=== PATIENT | male | born 1985 | race African-American/Black ===

== ENCOUNTER 2017-05-06 09:45 | Emergency (ER) | payer MEDICAID ==
[~2017-05-06] VITALS: Ht 182.9 cm; Wt 95.0 kg
[2017-05-06 10:05] VITALS: BP 135/87
== END 2017-05-06 11:15 | disposition home or self-care (01) ==
LOC: ER 09:45
DX: M25.521 Pain in right elbow (principal); F17.210 Nicotine dependence, cigarettes, uncomplicated; Z88.0 Allergy status to penicillin; Z88.6 Allergy status to analgesic agent
CPT/HCPCS: 99282; A4565

== ENCOUNTER 2018-01-25 16:21 | Emergency (ER) | payer MEDICAID ==
[~2018-01-25] VITALS: Ht 170.2 cm; Wt 96.0 kg
[2018-01-25] MEDS ORDERED: TETANUS, DIPHTHERIA, PERTUSSIS VAC/PF 0.5ML (>7YR OLD) IM ONE (17:45)
[2018-01-25] MEDS ORDERED: LIDOCAINE HCL 1% 20ML VIAL (Pyxis) INJ MC ONE (17:45)
[2018-01-25] MEDS ORDERED: LIDOCAINE HCL/PF 1% 10 MG/ML 5ML VIAL IJ SCH (19:45)
[2018-01-25] MEDS ORDERED: HYDROCODONE/ACETAMINOPHEN 5/325MG TABLET PO ONE (20:15)
[2018-01-25] MEDS ORDERED: LIDOCAINE/EPINEPHR/TETRACAINE 3ML TP ONE (20:15)
[2018-01-25 20:50] VITALS: BP 120/82
== END 2018-01-25 20:52 | disposition home or self-care (01) ==
LOC: ER 16:21
DX: S91.114A Laceration without foreign body of right lesser toe(s) without damage to nail, initial encounter (principal); W25.XXXA Contact with sharp glass, initial encounter; Y93.89 Activity, other specified; Y92.091 Bathroom in other non-institutional residence as the place of occurrence of the external cause; Z23 Encounter for immunization; Z88.0 Allergy status to penicillin; Z88.6 Allergy status to analgesic agent; Z88.5 Allergy status to narcotic agent
CPT/HCPCS: 73630; 90471; 90715; 99284; J3490; Z7610

== ENCOUNTER 2018-04-14 02:16 | Emergency (ER) | payer MEDICAID ==
[~2018-04-14] VITALS: Ht 182.9 cm; Wt 86.0 kg
[2018-04-14] MEDS ORDERED: OXYCODONE HCL/ACETAMINOPHEN 5/325MG TABLET PO ONE (03:45)
[2018-04-14 04:16] LABS: BASOPHILS % 0.7 % (0.0-2.0); EOSINOPHILS % 0.1 % (0.0-5.0); HEMATOCRIT. 42.4 % (42.0-52.0); HEMOGLOBIN. 14.1 g/dL (14.0-18.0); MEAN CORPUSCULAR HEMOGLOBIN 28.9 pg (28.0-32.0); MEAN CORPUSCULAR VOLUME 87.2 fL (80.0-94.0); MEAN PLATELET VOLUME 8.2 fl (7.4-10.4); MONOCYTES % 4.1 % (2.0-8.0); NEUTROPHILS % 77.1 % (40.0-76.0); PLATELET 206 x1000/uL (130-400); RED BLOOD CELL COUNT 4.86 mill/uL (4.7-6.1); RED CELL DISTRIBUTION WIDTH 14.1 % (11.6-14.6)
[2018-04-14 04:29] LABS: CHLORIDE 108 mEq/L (98-107)
[2018-04-14 05:30] VITALS: BP 109/99
== END 2018-04-14 06:12 | disposition home or self-care (01) ==
LOC: ER 02:16
DX: R07.81 Pleurodynia (principal); J06.9 Acute upper respiratory infection, unspecified; Z88.5 Allergy status to narcotic agent; Z88.6 Allergy status to analgesic agent; Z88.0 Allergy status to penicillin; Y09 Assault by unspecified means
CPT/HCPCS: 36415; 71045; 99285

== ENCOUNTER 2019-02-11 19:00 | Emergency (ER) | payer MEDICAID ==
[~2019-02-11] VITALS: Ht 182.9 cm; Wt 100.0 kg
[2019-02-11] MEDS ORDERED: MORPHINE SULFATE 4 MG/ML CPJ (NOT FOR IM USE) IV STA (19:58)
[2019-02-11] MEDS ORDERED: SODIUM CHLORIDE 0.9% 1,000 ML IV ONE (19:58)
[2019-02-11] MEDS ORDERED: ONDANSETRON HCL 4MG/2ML INJ IV STA (19:58)
[2019-02-11 21:12] LABS: CHLORIDE 107 mEq/L (98-107)
[2019-02-11 21:18] LABS: INR 1.1; PARTIAL THROMBOPLASTIN TIME 27.4 sec (23.4-31.0)
[2019-02-11 21:58] LABS: BASOPHILS % 0.6 % (0.0-2.0); EOSINOPHILS % 0.2 % (0.0-5.0); HEMATOCRIT. 47.5 % (42.0-52.0); HEMOGLOBIN. 16.2 g/dL (14.0-18.0); LYMPHOCYTES % 20.7 % (20.0-50.0); MEAN CORPUSCULAR HEMOGLOBIN 29.6 pg (28.0-32.0); MEAN CORPUSCULAR VOLUME 86.7 fL (80.0-94.0); MEAN PLATELET VOLUME 8.4 fl (7.4-10.4); MONOCYTES % 3.9 % (2.0-8.0); NEUTROPHILS % 74.6 % (40.0-76.0); PLATELET 236 x1000/uL (130-400); RED BLOOD CELL COUNT 5.48 mill/uL (4.7-6.1); RED CELL DISTRIBUTION WIDTH 14.1 % (11.6-14.6)
[2019-02-11] MEDS ORDERED: IOHEXOL-300 100 ML BOTTLE ONE (23:24)
[2019-02-12 00:09] LABS: CLARITY URINE CLEAR (CLEAR); COLOR URINE YELLOW (YELLOW); KETONES URINE TRACE (NEGATIVE); LEUKOCYTE ESTERASE URINE NEGATIVE (NEGATIVE); NITRITE URINE NEGATIVE (NEGATIVE); OCCULT BLOOD URINE NEGATIVE (NEGATIVE); PH URINE 7.5 (4.5-8.0); PROTEIN URINE NEGATIVE (NEGATIVE); SPECIFIC GRAVITY URINE 1.049 (1.005-1.030)
[2019-02-12 00:55] VITALS: BP 138/84
== END 2019-02-12 01:27 | disposition home or self-care (01) ==
LOC: ER 19:52 → CANBEDREQ 02-12 06:07
DX: R20.0 Anesthesia of skin (principal); F12.10 Cannabis abuse, uncomplicated; Z88.0 Allergy status to penicillin; Z88.6 Allergy status to analgesic agent; Z88.5 Allergy status to narcotic agent; V03.90XA Pedestrian on foot injured in collision with car, pick-up truck or van, unspecified whether traffic or nontraffic accident, initial encounter; Y93.89 Activity, other specified; Y92.488 Other paved roadways as the place of occurrence of the external cause
CPT/HCPCS: 36415; 70450; 71260; 72125; 73562; 73590; 73610; 73630; 73650; 74177; 80053; 81003; 83690; 85025; 85610; 85730; 93005; 96361; 96374; 96375; 99284; J2270; J2405; J7030; L1830; Q9967; Z7610

== ENCOUNTER 2019-09-18 21:19 | Inpatient (IN) | payer MEDICAID ==
[~2019-09-18] VITALS: Ht 182.9 cm; Wt 90.7 kg
[2019-09-18 23:20] LABS: BASOPHILS % 0.4 % (0.0-2.0); EOSINOPHILS % 1.2 % (0.0-5.0); HEMATOCRIT. 51.4 % (42.0-52.0); LYMPHOCYTES % 37.5 % (20.0-50.0); MEAN CORPUSCULAR HEMOGLOBIN 28.6 pg (28.0-32.0); MEAN CORPUSCULAR VOLUME 86.6 fL (80.0-94.0); MONOCYTES % 7.5 % (2.0-8.0); NEUTROPHILS % 53.4 % (40.0-76.0); PLATELET 241 x1000/uL (130-400); RED BLOOD CELL COUNT 5.93 mill/uL (4.7-6.1); RED CELL DISTRIBUTION WIDTH 14.3 % (11.6-14.6)
[2019-09-18 23:24] LABS: CHLORIDE 102 mEq/L (98-107)
[2019-09-19] VITALS (8 sets, daily range): BP systolic 107–126; BP diastolic 52–78
[2019-09-19] MEDS ORDERED: MORPHINE SULFATE 4 MG/ML CPJ (NOT FOR IM USE) IV ONE (00:30)
[2019-09-19] MEDS ORDERED: LORAZEPAM 2MG/ML CPJ IV ONE (00:30)
[2019-09-19] MEDS ORDERED: ONDANSETRON HCL 4MG/2ML INJ IV ONE (00:30)
[2019-09-19] MEDS ORDERED: LIDOCAINE HCL 1% 20ML VIAL (Pyxis) INJ INFIL ONE (00:30)
[2019-09-19] MEDS ORDERED: LORAZEPAM 2MG/ML CPJ ONE (00:46)
[2019-09-19] MEDS ORDERED: ACETAMINOPHEN 325MG TABLET PO PRN ×2 (10:00)
[2019-09-19] MEDS ORDERED: ACETAMINOPHEN 650MG/20.3ML UDC GT PRN ×2 (10:00)
[2019-09-19] MEDS ORDERED: ACETAMINOPHEN 650MG SUPP PR PRN ×2 (10:00)
[2019-09-19] MEDS ORDERED: DIPHENHYDRAMINE 50MG/ML VIAL IV PRN (10:00)
[2019-09-19] MEDS ORDERED: GUAIFENESIN 200MG/10ML SUGAR FREE UDC PO PRN (10:00)
[2019-09-19] MEDS ORDERED: CLONIDINE 0.1MG TABLET PO PRN (10:00)
[2019-09-19] MEDS ORDERED: MAGNESIUM/ALUMINUM HYDROXIDE/SIMETHICONE 30ML UDC PO PRN (10:00)
[2019-09-19] MEDS ORDERED: NA PHOS,M-B/NA PHOS,DI-BA ENEMA 118ML PR PRN (10:00)
[2019-09-19] MEDS ORDERED: DOCUSATE SODIUM 100MG CAPSULE PO PRN (10:00)
[2019-09-19 12:00] LABS: BASOPHILS % 0.4 % (0.0-2.0); EOSINOPHILS % 0.7 % (0.0-5.0); HEMOGLOBIN. 15.2 g/dL (14.0-18.0); LYMPHOCYTES % 17.7 % (20.0-50.0); MEAN CORPUSCULAR HEMOGLOBIN 28.8 pg (28.0-32.0); MEAN CORPUSCULAR VOLUME 87.5 fL (80.0-94.0); MEAN PLATELET VOLUME 7.8 fl (7.4-10.4); NEUTROPHILS % 74.2 % (40.0-76.0); PLATELET 201 x1000/uL (130-400); RED BLOOD CELL COUNT 5.26 mill/uL (4.7-6.1)
[2019-09-19 12:06] LABS: CHLORIDE 103 mEq/L (98-107)
[2019-09-19] MEDS: MORPHINE SULFATE 2 MG/ML CPJ (NOT FOR IM USE) IV PRN ×2 (13:15→17:39)
[2019-09-19] MEDS ORDERED: SODIUM CHLORIDE 0.9% INJ 3ML FLUSH IVF SCH (14:00)
[2019-09-19] MEDS: CEFTRIAXONE 1 G PREMIX 50 ML IV SCH (15:53)
[2019-09-19] MEDS: AZITHROMYCIN 500 MG in DEXT 5% WATER 250 ML IV SCH (15:59)
[2019-09-19] MEDS ORDERED: BISACODYL 10MG SUPP PR PRN (21:00)
[2019-09-19] MEDS ORDERED: DIPHENHYDRAMINE 25MG CAPSULE PO PRN (21:00)
[2019-09-19] MEDS ORDERED: DOCUSATE SODIUM 100MG CAPSULE PO SCH (21:00)
[2019-09-19] MEDS: SODIUM CHLORIDE 0.9% INJ 3ML FLUSH IVF SCH (21:27)
[2019-09-19 23:19] LABS: INR 1.1; PROTHROMBIN TIME 11.7 sec (9.6-11.0)
[2019-09-20] VITALS (45 sets, daily range): BP systolic 92–192; BP diastolic 41–239
[2019-09-20] MEDS: MORPHINE SULFATE 2 MG/ML CPJ (NOT FOR IM USE) IV PRN ×4 (00:12→14:32)
[2019-09-20 00:23] LABS: CLARITY URINE CLEAR (CLEAR); COLOR URINE YELLOW (YELLOW); KETONES URINE NEGATIVE (NEGATIVE); LEUKOCYTE ESTERASE URINE NEGATIVE (NEGATIVE); NITRITE URINE NEGATIVE (NEGATIVE); OCCULT BLOOD URINE NEGATIVE (NEGATIVE); PROTEIN URINE NEGATIVE (NEGATIVE); SPECIFIC GRAVITY URINE 1.022 (1.005-1.030); UROBILINOGEN URINE 0.2 E.U./dL (0.2-1.0)
[2019-09-20 00:49] LABS: *AMPHETAMINES SCREEN URINE NEGATIVE (NEGATIVE); *BARBITURATES SCREEN URINE NEGATIVE (NEGATIVE)
[2019-09-20 00:50] LABS: *BENZODIAZEPINES SCREEN URINE NEGATIVE (NEGATIVE); *COCAINE SCREEN URINE PRESUMTIVE POSITIVE (NEGATIVE); CANNABINOID URINE SCREEN PRESUMTIVE POSITIVE (NEGATIVE); METHADONE URINE SCREEN NEGATIVE (NEGATIVE); OPIATES URINE SCREEN PRESUMTIVE POSITIVE (NEGATIVE); PHENCYCLIDINE URINE SCREEN NEGATIVE (NEGATIVE)
[2019-09-20 05:04] LABS: BASOPHILS % 0.4 % (0.0-2.0); EOSINOPHILS % 3.1 % (0.0-5.0); HEMATOCRIT. 45.6 % (42.0-52.0); HEMOGLOBIN. 15.1 g/dL (14.0-18.0); LYMPHOCYTES % 33.1 % (20.0-50.0); MEAN CORPUSCULAR HEMOGLOBIN 28.8 pg (28.0-32.0); MEAN PLATELET VOLUME 7.7 fl (7.4-10.4); NEUTROPHILS % 55.4 % (40.0-76.0); PLATELET 188 x1000/uL (130-400); RED BLOOD CELL COUNT 5.24 mill/uL (4.7-6.1); RED CELL DISTRIBUTION WIDTH 14.1 % (11.6-14.6)
[2019-09-20 05:12] LABS: CHLORIDE 104 mEq/L (98-107)
[2019-09-20 05:13] LABS: INR 1.1; PROTHROMBIN TIME 11.6 sec (9.6-11.0)
[2019-09-20 05:22] LABS: HDL CHOLESTEROL 72 mg/dL (40-59); LDL CHOLESTEROL 78 mg/dL (5-100)
[2019-09-20] MEDS: SODIUM CHLORIDE 0.9% INJ 3ML FLUSH IVF SCH ×3 (06:00→22:00)
[2019-09-20] MEDS ORDERED: TALC 3 GM VIAL IX ONE (07:00)
[2019-09-20] MEDS ORDERED: LIDOCAINE HCL/EPINEPHRINE 1%-EPI 1:100,000 20 ML VIAL ONE (07:08)
[2019-09-20] MEDS ORDERED: TETRACAINE/BENZOCAINE/BUTAMBEN 20 GM SPRAY MM ONE (07:08)
[2019-09-20] MEDS ORDERED: BACITRACIN 50,000 UNITS/VIAL ONE (07:08)
[2019-09-20] MEDS ORDERED: FENTANYL CITRATE/PF 50MCG/ML 2ML VIAL ONE ×2 (07:28→08:46)
[2019-09-20] MEDS ORDERED: ROCURONIUM BROMIDE 10MG/ML VIAL 5ML IV ONE ×2 (07:28→08:36)
[2019-09-20] MEDS ORDERED: NEOSTIGMINE METHYLSULFATE 1MG/ML 10 ML VIAL ONE (07:28)
[2019-09-20] MEDS ORDERED: METOCLOPRAMIDE HCL 10MG/2ML VIAL ONE (07:29)
[2019-09-20] MEDS ORDERED: ONDANSETRON HCL 4MG/2ML INJ ONE (07:29)
[2019-09-20] MEDS ORDERED: LIDOCAINE HCL/PF 1% 10 MG/ML 5ML VIAL ONE (07:29)
[2019-09-20] MEDS ORDERED: SUCCINYLCHOLINE CHLORIDE 200MG/10ML IV ONE (07:29)
[2019-09-20] MEDS ORDERED: CEFAZOLIN SODIUM 1000MG/VIAL ONE (07:29)
[2019-09-20] MEDS ORDERED: SODIUM CHLORIDE 0.9% 10ML VIAL ONE ×2 (07:29→08:26)
[2019-09-20] MEDS ORDERED: GLYCOPYRROLATE 0.2 MG/ML 2ML VIAL ONE (07:29)
[2019-09-20] MEDS ORDERED: MIDAZOLAM HCL 2 MG/2 ML VIAL ONE (07:29)
[2019-09-20] MEDS ORDERED: PROPOFOL 200MG/20ML VIAL IV ONE (07:29)
[2019-09-20] MEDS ORDERED: SKIN ADHESIVE 0.7 GM EA TOP ONE (09:30)
[2019-09-20] MEDS ORDERED: SODIUM CHLORIDE 0.9% 500 ML IV PRN (10:17)
[2019-09-20] MEDS ORDERED: ONDANSETRON HCL 4MG/2ML INJ IV PRN (10:30)
[2019-09-20] MEDS ORDERED: ACETAMINOPHEN 325MG TABLET PO PRN (10:30)
[2019-09-20 10:57] LABS: BG BASE EXCESS -2.6 mmol/L (-2.0-2.0); BG CARBOXYHEMOGLOBIN 0.8 % (0.5-1.5); BG DEOXYHEMOGLOBIN 2.7 % (0.0-5.0); BG FRACTION INSPIRED OXYGEN 60; BG HCO3 ACT 24.2 mmol/L (22.0-26.0); BG METHEMOGLOBIN 0.2 % (0.0-1.5); BG OXYGEN SATURATION 97.3 % (92.0-98.5); BG OXYHEMOGLOBIN 96.3 % (94.0-97.0); BG PCO2 49.3 mmHg (35.0-45.0); BG PH 7.308 (7.350-7.450); BG PO2 97.3 mmHg (75.0-100.0); BG SAMPLE SITE A-LINE; BG TOTAL HEMOGLOBIN 14.9 g/dL (12.0-18.0); BG VENT MODE MASK - SIMPLE
[2019-09-20] MEDS: DOCUSATE SODIUM 100MG CAPSULE PO SCH ×2 (11:20→15:28)
[2019-09-20] MEDS: MAGNESIUM HYDROXIDE 400MG/5ML 30ML UDC PO SCH ×4 (11:30→23:46)
[2019-09-20] MEDS: DEXT 5%/0.45% NACL 1000ML 1,000 ML IV SCH (11:39)
[2019-09-20] MEDS: OXYCODONE HCL/ACETAMINOPHEN 5/325MG TABLET PO PRN ×2 (13:56→21:31)
[2019-09-20] MEDS: IPRATROPIUM/ALBUTEROL 0.5-3(2.5)MG/3ML NEB HHN SCH ×2 (14:59→21:09)
[2019-09-20] MEDS: CEFTRIAXONE 1 G PREMIX 50 ML IV SCH (15:32)
[2019-09-20] MEDS: AZITHROMYCIN 500 MG in DEXT 5% WATER 250 ML IV SCH (15:32)
[2019-09-21] VITALS (47 sets, daily range): BP systolic 85–186; BP diastolic 18–137
[2019-09-21] MEDS: IPRATROPIUM/ALBUTEROL 0.5-3(2.5)MG/3ML NEB HHN SCH ×7 (01:08→20:32)
[2019-09-21] MEDS: OXYCODONE HCL/ACETAMINOPHEN 5/325MG TABLET PO PRN ×2 (01:50→09:14)
[2019-09-21] MEDS: MAGNESIUM HYDROXIDE 400MG/5ML 30ML UDC PO SCH ×3 (04:15→12:09)
[2019-09-21] MEDS: DEXT 5%/0.45% NACL 1000ML 1,000 ML IV SCH ×2 (04:16→21:08)
[2019-09-21] MEDS: SODIUM CHLORIDE 0.9% INJ 3ML FLUSH IVF SCH ×3 (05:13→21:09)
[2019-09-21] MEDS: MORPHINE SULFATE 2 MG/ML CPJ (NOT FOR IM USE) IV PRN ×9 (06:28→23:24)
[2019-09-21] MEDS: DOCUSATE SODIUM 100MG CAPSULE PO SCH ×2 (08:22→17:00)
[2019-09-21 12:19] LABS: BASOPHILS % 0.3 % (0.0-2.0); EOSINOPHILS % 0.1 % (0.0-5.0); HEMATOCRIT. 43.2 % (42.0-52.0); HEMOGLOBIN. 14.3 g/dL (14.0-18.0); LYMPHOCYTES % 11.5 % (20.0-50.0); MEAN CORPUSCULAR HEMOGLOBIN 28.9 pg (28.0-32.0); MEAN CORPUSCULAR VOLUME 87.3 fL (80.0-94.0); MEAN PLATELET VOLUME 7.5 fl (7.4-10.4); MONOCYTES % 11.1 % (2.0-8.0); PLATELET 190 x1000/uL (130-400); RED BLOOD CELL COUNT 4.95 mill/uL (4.7-6.1); RED CELL DISTRIBUTION WIDTH 14.2 % (11.6-14.6)
[2019-09-21 12:27] LABS: CHLORIDE 101 mEq/L (98-107)
[2019-09-21] MEDS: CEFTRIAXONE 1 G PREMIX 50 ML IV SCH (14:04)
[2019-09-21] MEDS: AZITHROMYCIN 500 MG in DEXT 5% WATER 250 ML IV SCH (15:05)
[2019-09-22] VITALS (14 sets, daily range): BP systolic 117–155; BP diastolic 73–120
[2019-09-22] MEDS: IPRATROPIUM/ALBUTEROL 0.5-3(2.5)MG/3ML NEB HHN SCH ×4 (00:02→13:54)
[2019-09-22] MEDS: MORPHINE SULFATE 2 MG/ML CPJ (NOT FOR IM USE) IV PRN ×2 (03:34→06:41)
[2019-09-22] MEDS: SODIUM CHLORIDE 0.9% INJ 3ML FLUSH IVF SCH ×2 (06:40→13:09)
[2019-09-22] MEDS: DOCUSATE SODIUM 100MG CAPSULE PO SCH (08:13)
[2019-09-22] MEDS: OXYCODONE HCL/ACETAMINOPHEN 5/325MG TABLET PO PRN (10:56)
[2019-09-22] MEDS: DEXT 5%/0.45% NACL 1000ML 1,000 ML IV SCH (13:09)
[2019-09-23] MEDS ORDERED: AZITHROMYCIN 500 MG TABLET PO SCH (09:00)
== END 2019-09-22 15:23 | disposition left against medical advice (07) | DRG 121 ==
LOC: ER 21:19 → 5EST 09-19 01:26 → EDBEDREQSVC 09-19 01:27 → EDBEDREQ 09-19 01:27 → EDBEDREQTM 09-19 01:27 → ENRESERV 09-19 07:26 → CVICU 09-20 09:39
PROVIDERS: ADMIT Family Medicine; ATTEND Family Medicine
PROC: 0W9B30Z Drainage of Left Pleural Cavity with Drainage Device, Percutaneous Approach (ICD-10-PCS; 2019-09-19)
PROC: 0W9B40Z Drainage of Left Pleural Cavity with Drainage Device, Percutaneous Endoscopic Approach (ICD-10-PCS; principal; 2019-09-20)
PROC: 0BBG4ZZ Excision of Left Upper Lung Lobe, Percutaneous Endoscopic Approach (ICD-10-PCS; 2019-09-20)
PROC: 3E0L4GC Introduction of Other Therapeutic Substance into Pleural Cavity, Percutaneous Endoscopic Approach (ICD-10-PCS; 2019-09-20)
DX: J96.00 Acute respiratory failure, unspecified whether with hypoxia or hypercapnia (principal); J18.9 Pneumonia, unspecified organism; J93.11 Primary spontaneous pneumothorax; J43.0 Unilateral pulmonary emphysema [MacLeod's syndrome]; F10.10 Alcohol abuse, uncomplicated; F17.210 Nicotine dependence, cigarettes, uncomplicated; F12.10 Cannabis abuse, uncomplicated; F14.10 Cocaine abuse, uncomplicated; Z88.0 Allergy status to penicillin; Z88.5 Allergy status to narcotic agent; Z88.8 Allergy status to other drugs, medicaments and biological substances; Z88.6 Allergy status to analgesic agent; Z79.899 Other long term (current) drug therapy
CPT/HCPCS: 36415; 36600; 71045; 73706; 80048; 80053; 80061; 80305; 80320; 81003; 82375; 82805; 83605; 83880; 84145; 84484; 85025; 86850; 86900; 88307; 93005; 97116; 97162; 97166; 97530; 99291; J0330; J0456; J0690; J0696; J2060; J2250; J2270; J2405; J2704; J2710; J2765; J3010; J3490; J7060; G0480

== ENCOUNTER 2019-09-30 13:28 | Emergency (ER) | payer MEDICAID ==
[~2019-09-30] VITALS: Ht 182.9 cm; Wt 83.9 kg
[2019-09-30] MEDS ORDERED: HYDROCODONE/ACETAMINOPHEN 5/325MG TABLET PO STA (14:36)
[2019-09-30 16:40] VITALS: BP 122/83
== END 2019-09-30 16:52 | disposition home or self-care (01) ==
LOC: ER 13:28
DX: R07.89 Other chest pain (principal); J45.909 Unspecified asthma, uncomplicated; F14.10 Cocaine abuse, uncomplicated; F12.10 Cannabis abuse, uncomplicated; Z98.890 Other specified postprocedural states; Z88.0 Allergy status to penicillin; Z88.6 Allergy status to analgesic agent
CPT/HCPCS: 71045; 99283

== ENCOUNTER 2020-07-17 13:17 | Emergency (ER) | payer MEDICAID ==
[~2020-07-17] VITALS: Ht 182.9 cm; Wt 97.0 kg
[2020-07-17] MEDS ORDERED: IBUPROFEN 600MG TABLET PO STA (13:56)
[2020-07-17 14:06] LABS: BASOPHILS % 0.5 % (0.0-2.0); EOSINOPHILS % 0.9 % (0.0-5.0); HEMOGLOBIN. 14.7 g/dL (14.0-18.0); LYMPHOCYTES % 37.3 % (20.0-50.0); MEAN CORPUSCULAR HEMOGLOBIN 28.3 pg (28.0-32.0); MEAN CORPUSCULAR VOLUME 86.8 fL (80.0-94.0); MEAN PLATELET VOLUME 8.4 fl (7.4-10.4); MONOCYTES % 10.8 % (2.0-8.0); NEUTROPHILS % 50.5 % (40.0-76.0); PLATELET 173 x1000/uL (130-400); RED BLOOD CELL COUNT 5.19 mill/uL (4.7-6.1); RED CELL DISTRIBUTION WIDTH 14.6 % (11.6-14.6)
[2020-07-17 14:14] LABS: CHLORIDE 107 mEq/L (98-107)
[2020-07-17] MEDS ORDERED: KETOROLAC 15MG/ML VIAL IV ONE (14:30)
[2020-07-17] MEDS ORDERED: MOBI7 MT (15:03)
[2020-07-17 15:10] VITALS: BP 132/74
== END 2020-07-17 15:24 | disposition home or self-care (01) ==
LOC: ER 13:58
DX: R07.89 Other chest pain (principal); F17.290 Nicotine dependence, other tobacco product, uncomplicated; I10 Essential (primary) hypertension; Z98.890 Other specified postprocedural states; Z88.0 Allergy status to penicillin; Z88.6 Allergy status to analgesic agent
CPT/HCPCS: 36415; 71045; 80053; 85025; 93005; 96374; 99285; J1885

== ENCOUNTER 2023-04-02 12:35 | Emergency (ER) | payer MEDICAID ==
[~2023-04-02] VITALS: Ht 185.4 cm; Wt 90.0 kg
[~2023-04-02 12:35] MED LIST: MOBI7 MT
[2023-04-02 12:40] VITALS: BP 147/60; PULSE 74; RESP 20; TEMP 98.4; O2SAT 99
[2023-04-02 13:20] LABS: BASOPHILS % 0.7 % (0.0-2.0); EOSINOPHILS % 1.1 % (0.0-5.0); HEMATOCRIT. 41.3 % (42.0-52.0); HEMOGLOBIN. 13.4 g/dL (14.0-18.0); LYMPHOCYTES % 32.6 % (20.0-50.0); MEAN CORPUSCULAR HEMOGLOBIN 29.2 pg (28.0-32.0); MEAN CORPUSCULAR HGB CONC 32.6 g/dL (31.0-37.0); MEAN CORPUSCULAR VOLUME 89.7 fL (80.0-94.0); MEAN PLATELET VOLUME 8.5 fl (7.4-10.4); MONOCYTES % 8.6 % (2.0-8.0); PLATELET 236 x1000/uL (130-400); RED CELL DISTRIBUTION WIDTH 14.1 % (11.6-14.6); WHITE BLOOD COUNT 6.2 x1000/uL (4.5-11.0)
[2023-04-02 13:43] LABS: CHLORIDE 106 mEq/L (98-107); INDEX HEMOLYSI 2 (1-3); INDEX ICTERIC 1 (1-4); INDEX LIPEMIC 1 (1-3); POTASSIUM 3.9 mEq/L (3.5-5.1); SODIUM 139 mEq/L (136-145)
[2023-04-02 14:54] LABS: ALANINE AMINOTRANSFERASE 56 IU/L (13-61); ALBUMIN 3.9 g/dL (3.4-5.0); ASPARTATE AMINOTRANSFERASE 39 IU/L (15-37); CALCIUM 9.3 mg/dL (8.5-10.1); CARBON DIOXIDE 27 mEq/L (21-32); CREATININE 1.2 mg/dL (0.6-1.3); GLUCOSE 90 mg/dL (70-105); PROTEIN TOTAL 7.5 g/dL (6.0-8.3); UREA NITROGEN BLOOD 15 mg/dL (7-21)
[2023-04-02] MEDS ORDERED: BENZ200C52 MT (16:32)
[2023-04-02 18:25] LABS: BILIRUBIN TOTAL 0.8 mg/dL (0.1-1.0)
== END 2023-04-02 16:56 | disposition home or self-care (01) ==
LOC: ER 13:09
DX: R05.9 Cough, unspecified (principal); I10 Essential (primary) hypertension; Z88.0 Allergy status to penicillin; Z88.5 Allergy status to narcotic agent; Z88.6 Allergy status to analgesic agent; Z98.890 Other specified postprocedural states
CPT/HCPCS: 36415; 71045; 80053; 85025; 93005; 99285

== ENCOUNTER 2025-03-28 11:02 | Emergency (ER) | payer MEDICAID, OTHER ==
[~2025-03-28] VITALS: Ht 182.9 cm; Wt 90.0 kg
[~2025-03-28 11:02] MED LIST changes: +BENZ200C52 MT
[2025-03-28 11:04] VITALS: O2SAT 99
[2025-03-28] MEDS ORDERED: HYDROCODONE/ACETAMINOPHEN 10/325MG TABLET PO ONE (11:15)
[2025-03-28] MEDS: HYDROCODONE/ACETAMINOPHEN 10/325MG TABLET PO NR (11:37)
[2025-03-28] MEDS ORDERED: TOPUD MT (12:56)
[2025-03-28] MEDS ORDERED: IBUP-1525 MT (12:56)
[2025-03-28 13:19] VITALS: BP 129/90; PULSE 78; RESP 16; TEMP 36.9; O2SAT 99
== END 2025-03-28 13:31 | disposition home or self-care (01) ==
LOC: ER 11:23
DX: S20.219A Contusion of unspecified front wall of thorax, initial encounter (principal); I10 Essential (primary) hypertension; J45.909 Unspecified asthma, uncomplicated; Z88.0 Allergy status to penicillin; Z88.5 Allergy status to narcotic agent; Z88.6 Allergy status to analgesic agent; X58.XXXA Exposure to other specified factors, initial encounter; Y93.89 Activity, other specified; Y92.89 Other specified places as the place of occurrence of the external cause; Y99.8 Other external cause status
CPT/HCPCS: 71045; 73030; 93005; 99284